=== PATIENT | female | born 1995 | race Caucasian/White ===

== ENCOUNTER 2019-03-08 04:30 | Observation (INO) | payer OTHER, SELFPAY ==
[2019-03-08] VITALS (13 sets, daily range): BP systolic 91–125; BP diastolic 42–88; PULSE 59–100; RESP 13–22; TEMP 36.3–37.4; O2SAT 97–100; BMI 28.0
--- NOTE | ~2019-03-08 | CT_ITS ---
EXAMINATION: CT abdomen pelvis w con DATE: 03/08/2019 05:57 INDICATION: Right lower abdominal pain. TECHNIQUE: Computed tomography (CT) of the abdomen and pelvis was performed with 100 mL Omnipaque 350 intravenous contrast. Automated exposure control and iterative reconstruction technique were employe d. The dose-length product was 307.83 mGy-cm. COMPARISON: CT abdomen and pelvis 09/29/2018 FINDINGS: The visualized portions of the lung bases demonstrate mild atelectasis on the right. No ple ural effusion. The heart size is normal. No pericardial effusion. The liver, gallbladder, spleen, gould creas, adrenal glands, and kidneys are normal. The appendix contains multiple appendicoliths and is d ilated to 12 mm, consistent with appendicitis. There are no pathologically enlarged lymph nodes. Ther e is trace pelvic ascites. The bones are unremarkable. IMPRESSION: 1. Acute appendicitis. Reviewed, dictated and finalized at location A. [facility] [employer] IMPRESSION: 1. Acute appendicitis.
--- NOTE | 2019-03-08 04:53 | ED.ABDPAIN ---
HPI - Abdominal Pain General Chief Complaint: Abdominal Pain Stated Complaint: left side pain Time Seen by Provider: 03/08/19 04:45 Source: patient Mode of arrival: ambulatory Limitations: no limitations History of Present Illness HPI narrative: 23 yo female who presents with c/o right lower abdominal pain starting 12 hours ago. She states she has had constant pain that has gradually worsened. She reports sweats , nausea, vomiting. She has cloudy urine but denies hematuria or dysuria. She denies her pain radiating to her back. She denies history of kidney stones or ovarian cyst. MD elicited complaint: abdominal pain Onset (ago): day(s) (1) Pain Consistency: constant Location: RLQ Severity: severe Radiation: none Exacerbating factors: nothing Relieving factors: nothing Associated symptoms: nausea and vomiting Related Data Hx Last Menstrual Period: 2 weeks ago Home Medications Medication Instructions Recorded Confirmed No Home Medications 03/08/19 03/08/19 Allergies Allergy/AdvReac Type Severity Reaction Status Date / Time acetaminophen Allergy Intermediate RASH Verified 03/08/19 04:49 hydrocodone Allergy Intermediate RASH Verified 03/08/19 04:49 strawberry Allergy Intermediate Unknown Verified 03/08/19 04:49 Review of Systems Review of Systems: Narrative: CONSTITUTIONAL: Denies fever,; reports sweats. EYES: Denies visual changes, redness, or discharge. ENT: Denies rhinorrhea, congestion, sore throat, or otalgia. CARDIOVASCULAR: Denies chest pain, palpitations, or edema. RESPIRATORY: Denies cough or dyspnea. GASTROINTESTINAL: reports abdominal pain, nausea, vomiting GENITOURINARY: Denies dysuria or hematuria. SKIN: Denies rash or itching. MUSCULOSKELETAL: Denies back pain, joint pain, or myalgia. NEUROLOGIC: Denies headache, numbness, or weakness. PSYCHIATRIC: Denies anxiety or depression. [facility] Surgical History Surgical History S/P section Social History Social History Gender identity (if verbalized by the patient): Female Exam Narrative: Exam Narrative: . HEAD: Normocephalic, atraumatic THROAT:Mucous membranes moist, Oropharynx normal without erythema, exudate, peritonsillar swelling or fluctuance NECK: Supple, without lymphadenopathy or mass RESPIRATORY: No respiratory distress, Airway patent, Respirations non-labored, Clear to auscultation without rales, rhonchi or wheeze HEART: Regular rate and rhythm. No murmur heard. Normal peripheral pulses. SKIN: Warm, dry, normal color without rash NEURO: Alert and oriented x3. CN 2-12 grossly intact. No focal deficits. PSYCH: Normal mood and affect. Const: General: alert Orientation/consciousness: oriented x3 Other: moderate distress due to pain GI: GI Palp: Yes soft, Yes tender (RLQ), No guarding, No rigid and No hernia Auscultation: normal bowel sounds Course Reevaluation(s) Reevaluation #1: Nursing staff reports patient states her pain and nausea are currently resolved. Awaiting CT abdomen pelvis Date: 03/08/19 Time: 05:36 Consultations Consultation #1: I Discussed with Dr. Petersen. HE will check on OR and call back Date: 03/08/19 Time: 06:28 Vital Signs Vital signs: Vital Signs Temperature 97.4 F L 03/08/19 04:35 Pulse Rate 88 03/08/19 04:35 Respiratory Rate 18 03/08/19 04:35 Blood Pressure 121/65 03/08/19 04:35 Pulse Oximetry 100 03/08/19 04:35 Temperature 97.6 F 03/08/19 04:40 Pulse Rate 83 03/08/19 05:35 Respiratory Rate 20 03/08/19 05:35 Blood Pressure 125/88 03/08/19 05:35 Pulse Oximetry 99 03/08/19 05:35 MDM - Abdominal Pain Lab Data Attestation: I reviewed the patient's lab results. Result diagrams: 03/08/19 04:57 03/08/19 04:57 Labs: Lab Results 03/08/19 03/08/19 03/08/19 Range/Units 04:57 04:57 04:57 WBC 27.3 H (4.5-10.0) K/mm3 RBC 4.12 L (4.2-5.4) M/mm3 Hgb
[2019-03-08] MEDS: KETOROLAC 30 MG/ML VIAL (*BKC) IV PUSH (04:59)
[2019-03-08] MEDS: ONDANSETRON INJ 4 MG/2 ML VIAL IV PUSH ×2 (04:59→11:19)
[2019-03-08] MEDS: LACTATED RINGERS 1,000 ML 999 ML IV CONT (04:59)
[2019-03-08 05:09] LABS: Basophils Absolute Auto 0.1 K/mm3 (0.0-0.1); Basophils Percent Auto 0.2 % (0.2-1.2); Hematocrit 39.7 % (37.0-47.0); Hemoglobin 13.7 g/dL (12.0-15.0); Immature Granulocyte Absolute 0.21 K/mm3 (0.00-0.031); Immature Granulocyte Percent A 0.8 % (0-0.5); Lymphocytes Absolute Auto 1.41 K/mm3 (0.9-3.2); Lymphocytes Percent Auto 5.2 % (18.3-44.2); Mean Corpuscular HGB Conc 34.5 g/dl (32-36); Mean Corpuscular Hemoglobin 33.3 pg (26-34); Mean Corpuscular Volume 96.4 fl (80-100); Mean Platelet Volume 9.6 fl (7.4-10.4); Monocytes Absolute Auto 1.2 K/mm3 (0.1-0.6); Monocytes Percent Auto 4.4 % (2.6-8.5); Neutrophils Absolute Auto 24.4 K/mm3 (1.3-6.7); Neutrophils Percent Auto 89.4 % (45.5-73.1); Platelet Count Result 335 k/mm3 (150-375); Red Blood Count 4.12 M/mm3 (4.2-5.4); Red Cell Distribution Width 12.7 % (11.5-14.5); White Blood Count 27.3 K/mm3 (4.5-10.0)
[2019-03-08 05:23] LABS: Alanine Aminotransferase 17 U/L (4-35); Albumin Level 4.3 g/dL (3.5-5.1); Alkaline Phosphatase 68 U/L (38-126); Aspartate Amino Transferase 25 U/L (14-36); Bilirubin,Total 0.6 mg/dL (0.2-1.3); Blood Urea Nitrogen 14 mg/dL (7-17); Calcium 9.3 mg/dL (8.4-10.2); Carbon Dioxide 23 mmol/L (22-30); Chloride 100 mmol/L (98-107); Estimated CRCL calculation 119 ml/min; Estimated Glomerular Filt Rate > 60; Glucose 133 mg/dL (65-105); Lipase 44 U/L (23-300); Potassium 3.7 mmol/L (3.4-5.0); Sodium 134 mmol/L (137-145)
[2019-03-08 05:24] LABS: Add Urine Microscopic? YES; Appearance Urine Clear (Clear); Bacteria Urine Trace /hpf; Bilirubin Urine Negative (Negative); Blood Urine 1+ (Negative); Color Urine Yellow (Yellow); Glucose Urine UA Negative (Negative); Ketones Urine Trace mg/dL (Negative); Leukocyte Esterase Ur Negative LEU/UL (Negative); Mucus Urine Heavy /lpf; Nitrate Urine Negative (Negative); Protein Urine 1+ mg/dL (Negative); Squamous Epithelial Cell Urine Many /hpf (Few); Urobilinogen Urine Negative mg/dL (<2.0); WBC Urine 0-3 /hpf
[2019-03-08 05:31] LABS: Specific Grav Ur 1.031 (1.001-1.035)
--- NOTE | 2019-03-08 07:37 | ADMGEN ---
This patient, Madhavi Cat, was admitted to Medical Room 258-. Patient/family oriented to hospital policies and general routines including ID bracelet, bed and alarms, visiting hours, pain management, procedures, bathroom and other care routines, personal items, smoking policy, room service/diet, and visiting hours. Valuables list has been completed. Information on how to activate the Rapid Response Team has been discussed. Patient/Family are encouraged to report perceived risks to care and to ask questions if they do not understand what they are told or what they should do.
[2019-03-08] MEDS: LACTATED RINGERS 1,000 ML 125 ML IV CONT (07:49)
--- NOTE | 2019-03-08 08:36 | WPDANESEPP ---
Anes - Eval Pre Procedure Procedure: Operation Date: 03/08/19 09:00 Proposed Procedures p Laparoscopic Appendectomy - Juan Petersen MD Date/Time: 03/08/19 08:36 Pre Op Diagnosis: acute appendicitis Patient Data Age: 23 Gender: F Height: 1.52 m Weight: 63.6 kg Last Vital Signs Temp 36.4 C 03/08/19 04:40 Pulse 76 03/08/19 07:00 Resp 18 03/08/19 07:00 BP 124/82 03/08/19 07:00 Pulse Ox 100 03/08/19 07:00 Allergies Allergy/AdvReac Type Severity Reaction Status Date / Time strawberry Allergy Intermediate Unknown Verified 03/08/19 08:14 acetaminophen [From Vicodin] AdvReac Rash Verified 03/08/19 08:14 hydrocodone [From Vicodin] AdvReac Rash Verified 03/08/19 08:14 Home Medications Medication Instructions Recorded Confirmed Type No Home Medications 03/08/19 03/08/19 History Laboratory Tests 03/08/19 03/08/19 03/08/19 04:57 04:57 04:57 WBC 27.3 K/mm3 H K/mm3 (4.5-10.0) RBC 4.12 M/mm3 L M/mm3 (4.2-5.4) Hgb 13.7 g/dL g/dL (12.0-15.0) Hct 39.7 % % (37.0-47.0) MCV 96.4 fl fl (80-100) MCH 33.3 pg pg (26-34) MCHC 34.5 g/dl g/dl (32-36) RDW 12.7 % % (11.5-14.5) Plt Count 335 k/mm3 k/mm3 (150-375) MPV 9.6 fl fl (7.4-10.4) Immature Gran % (Auto) 0.8 % H % (0-0.5) Neut % (Auto) 89.4 % H % (45.5-73.1) Lymph % (Auto) 5.2 % L % (18.3-44.2) Tyler % (Auto) 4.4 % % (2.6-8.5) Eos % (Auto) 0.0 % % (0-4.4) Baso % (Auto) 0.2 % % (0.2-1.2) Lymph # (Auto) 1.41 K/mm3 K/mm3 (0.9-3.2) Tyler # (Auto) 1.2 K/mm3 H K/mm3 (0.1-0.6) Eos # (Auto) 0.0 K/mm3 K/mm3 (0-0.3) Baso # (Auto) 0.1 K/mm3 K/mm3 (0.0-0.1) Abs Immat Gran (auto) 0.21 K/mm3 H K/mm3 (0.00-0.031) Absolute Neuts (auto) 24.4 K/mm3 H K/mm3 (1.3-6.7) Absolute Nucleated RBC 0.0 K/mm3 K/mm3 (0.0-0.012) Nucleated RBC % 0.0 % % (0.0-0.2) Sodium 134 mmol/L L mmol/L (137-145) Potassium 3.7 mmol/L mmol/L (3.4-5.0) Chloride 100 mmol/L mmol/L (98-107) Carbon Dioxide 23 mmol/L mmol/L (22-30) BUN 14 mg/dL mg/dL (7-17) Creatinine 0.50 mg/dL L mg/dL (0.7-1.0) Estim Creat Clear Calc 119 ml/min ml/min Estimated GFR > 60 (59 - ) Glucose 133 mg/dL H mg/dL (65-105) Calcium 9.3 mg/dL mg/dL (8.4-10.2) Total Bilirubin 0.6 mg/dL mg/dL (0.2-1.3) AST 25 U/L U/L (14-36) ALT 17 U/L U/L (4-35) Alkaline Phosphatase 68 U/L U/L (38-126) Total Protein 8.0 g/dL g/dL (6.3-8.2) Albumin 4.3 g/dL g/dL (3.5-5.1) Lipase 44 U/L U/L (23-300) Urine Color Yellow (Yellow) Urine Appearance Clear (Clear) Urine pH 6.0 (5.0-9.0) Ur Specific [place] 1.031 (1.001-1.035) Urine Protein 1+ mg/dL H mg/dL (Negative) Urine Glucose (UA) Negative mg/dL mg/dL (Negative) Urine Ketones Trace mg/dL mg/dL (Negative) Ur Blood (Man) 1+ H (Negative) Urine Nitrate Negative (Negative) Urine Bilirubin Negative (Negative) Urine Urobilinogen Negative mg/dL mg/dL (<2.0) Leukocyte Esterase Rfl Negative ALINA/UL ALINA/UL (Negative) Urine RBC 3-5 /hpf H /hpf (0-2) Urine WBC 0-3 /hpf /hpf Ur Squamous Epith Cells Many /hpf H /hpf (Few) Urine Bacteria Trace /hpf /hpf Urine Mucus Heavy /lpf H /lpf Patient hx anesthesia problems: none Family hx anesthesia problems: none [facility] Family History Family History Mother Guillain Del Real? syndrome Father Multiple sclerosis Social History Social
--- NOTE | 2019-03-08 09:28 | WPDANESEFPP ---
Anes - Eval Final PreProcedure Day of Procedure 03/08/19 09:28 Patient weight: overweight Heart: regular rate and rhythm Lungs: clear to auscultation and normal air movement Airway: Mallampati scale class II Neurological: alert and oriented Last oral intake: >/= 8 hours ASA classification: II Emergent: yes Anesthetic plan: proceed Anesthesia type and monitoring: general ETT Informed Consent: The patient's anesthetic plan and its attendant risks and benefits were discussed with the patient/family/POA. Questions were solicited and answers provided to the satisfaction of the patient/family/POA.
--- NOTE | 2019-03-08 09:29 | PM.IMHP ---
H&P: HPI History of Present Illness Chief complaint: acute appendicitis Narrative: Madhavi Cat is a 23 yo female who presents with c/o right lower abdominal pain starting 15 hours ago. She states she has had constant pain that has gradually worsened. She reports sweats , nausea, vomiting. She has cloudy urine but denies hematuria or dysuria. She has had 2 C sections in the past 3 in 5 years ago. She denies her pain radiating to her back. She denies history of kidney stones or ovarian cyst. Last menstrual period was [address] scan during workup in the emergency room reveals a dilated appendix with the tip measuring 9 mm. She also had a corpus luteum cyst in the right ovary. There was no signs of abscess. [place] [id number]. Because of this and because of appendicoliths noted on CT she has decided to proceed with appendectomy. See plan below. Review of Systems Constitutional: Constitutional: Reports as per HPI and Denies headache(s) Eyes: Eyes: Denies loss of vision and Denies eye pain ENT: Reports hearing normal, Denies change in voice, Denies dizziness and Denies headache(s) Cardiovascular: Cardiovascular: Denies chest pain and Denies dyspnea Respiratory: Respiratory: Denies dyspnea and Denies wheezing Gastrointestinal: Gastrointestinal: Reports abdominal pain, Reports nausea and Reports vomiting Genitourinary: Genitourinary: Reports other (2 previous C-sections a Pfannstiel incision) Musculoskeletal: Musculoskeletal: Denies back pain and Denies arthralgias Integumentary/Breasts: Skin/Breast: Reports system reviewed and no additional complaints, except as docu Neurologic: Reports Normal hearing present, Denies dizziness, Denies headache(s), Denies loss of vision and Denies memory loss Psychiatric: Psychiatric: Denies memory loss and Denies panic attacks Endocrine: Endocrine: Reports no additional endocrine complaints Hematologic/Lymphatic: Hematologic/Lymphatic: Reports no additional hematologic/lymphatic complaints Allergic/Immunologic: Allergic/Immunologic: Denies wheezing [facility] Family History Family History Mother Guillain Del Real? syndrome Father Multiple sclerosis Social History Social History Smoking packs per day: 0.25 Smoking cigarettes per day: 5.0 Years smoked: 10 Smoking pack-years: 2.50 Smoking status: Current every day smoker Tobacco type: cigarettes Second hand tobacco smoke exposure: Yes Alcohol intake: former Drinks per week: 1 Gender identity (if verbalized by the patient): Female Spiritual care concerns: No Agree to blood products: Yes Meds Home Medications and Allergies Home Medications Medication Instructions Recorded Confirmed Type No Home Medications 03/08/19 03/08/19 History hydrocodone-acetaminophen 1 tab PO Q4H PRN #7 tablet 03/08/19 Rx Allergies Allergy/AdvReac Type Severity Reaction Status Date / Time strawberry Allergy Intermediate Unknown Verified 03/08/19 08:14 acetaminophen [From Vicodin] AdvReac Rash Verified 03/08/19 08:14 hydrocodone [From Vicodin] AdvReac Rash Verified 03/08/19 08:14 Vital Signs Vital Signs - 24 hr 03/08/19 04:35 03/08/19 04:40 03/08/19 05:35 Temperature 36.3 C L 36.4 C Pulse Rate 88 86 83 Respiratory Rate 18 16 20 Blood Pressure 121/65 113/69 125/88 Pulse Oximetry 100 99 99 03/08/19 07:00 Temperature Pulse Rate 76 Respiratory Rate 18 Blood Pressure 124/82 Pulse Oximetry 100 Exam Const: General: cooperative, no acute distress, alert and awake Orientation/consciousness: oriented x3 HENMT: Mouth: Yes moist mucous membranes Neck: Neck: normal visual inspection Chest: Chest palpation & inspection: normal inspection of the chest Resp: Effort & Inspection: normal respiratory effort Auscultation: clear to auscultation bilaterally Cardio: Jugular venous distension: no JVD Rate: regular rate Rhythm:
--- NOTE | 2019-03-08 09:40 | PC.NURSE ---
Patient to OR per stretcher.
[2019-03-08] MEDS: LACTATED RINGERS 1,000 ML 30 ML IV CONT ×2 (10:00→10:56)
[2019-03-08] MEDS: BUPIVACAINE/EPINEPHRINE 0.5% 10 ML VIAL 30 ML INFILTRATE (10:07)
--- NOTE | 2019-03-08 11:25 | PM.PROC ---
Procedure Note - Detailed Date of procedure: 03/08/19 Pre-op diagnosis: acute appendicitis Post-op diagnosis: same Procedure performed: Laparoscopic Appendectomy Description of procedure: The patient was seen in her hospital Room. The risks, benefits, complications, treatment options, and expected outcomes were discussed with the patient and/or family. The possibilities of reaction to medication, pulmonary aspiration, perforation of viscus, bleeding, recurrent infection, finding a normal appendix, the need for additional procedures, failure to diagnose a condition, and creating a complication requiring transfusion or operation were discussed. There was concurrence with the proposed plan and informed consent was obtained. The site of surgery was properly noted/marked. The patient was taken to Operating Room, and a time out was preformed which identified this as the proper patient, and the procedure verified as laparoscopic appendectomy, possible open. The patient was placed in the supine position and general anesthesia was induced, along with placement of orogastric tube, SCD hose, and a Jackson catheter. The abdomen was prepped and draped in a sterile fashion. A 5 mm umbilical incision was made and the peritoneal cavity was accessed using the Veress needle technique. Once the abdomen was insufflated to 14 mmHg pressure a 5 mm XL trocar over the 0? 5 mm scope was carefully twisted into the abdomen via the umbilicus. The pneumoperitoneum was then established to steady pressure of 14 mm Hg. A 12 mm laparoscopic port was placed through a transverse suprapubic incision. An additional 5 mm cannula was then placed in the left upper quadrant of the abdomen under direct vision. A careful evaluation of the entire abdomen was carried out. The patient was placed in Trendelenburg and left lateral decubitus position. The small intestines were retracted in the cephalad and left lateral direction away from the pelvis and right lower quadrant. The patient was found to have an enlarged and inflamed appendix that was extending into the right pericolic gutter. There was no evidence of perforation. The appendix was carefully dissected. Once it was free a 45 mm ethicon endogastroentestinal stapler with a vascular load was placed across the mesoappendix. This was fired and hemostasis was checked along the staple line and appeared to be adequate. For this patient, this divided the entire mesoappendix and we were able to proceed immediately to stapling off the appendix at it's junction with the cecum. The appendix was then divided at its base using the same 45 mm stapler with a 3.5 mm bowel wall load. Minimal appendiceal stump was left in place. There was no evidence of bleeding, leakage, or complication after division of the appendix at its junction with the cecum.. The appendix was then placed in an endobag which had been brought through the 12 mm suprapubic port site. The appendix and the bag were then extracted through this larger port site in the suprapubic position. The suprapubic port site was closed using a #1 Polysorb suture passed with a Harrison-Puente cone and needle suture passer and another placed separately using a standard needle jacob externally through the supra-pubic incision at the level of the fascia. The trocar site skin wounds were closed using 4-0 undyed Monocryl and surgical glue. Instrument, sponge, and needle counts were correct at the conclusion of the case. Anesthesia: GETA Surgeon: Juan Petersen MD Social Director: CARMENZA Sutherland, OR 1st assist Estimated blood loss (mL): 5 Urine output (mL): 200 Drains: No Packing: No Pathology: yes (Appendix) Complications: No immediate complications Condition: stable Disposition: PACU Findings: Appendix was curled swollen and hyperemic. No signs of gangrenous change or perforation.
--- NOTE | 2019-03-08 12:13 | PC.NURSE ---
Return from OR per stretcher.
[2019-03-08] MEDS: LACTATED RINGERS 1,000 ML 100 ML IV CONT (13:13)
--- NOTE | 2019-03-08 18:20 | PM.PNGS ---
Progress Note: A&P Assessment and Plan (1) Acute appendicitis: Onset Date: ~03/08/19 Qualifiers: Acute appendicitis type: with localized peritonitis Appendicitis abscess presence: without abscess Appendicitis gangrene presence: unspecified whether gangrene present Appendicitis perforation presence: without perforation Qualified Code(s): K35.30 - Acute appendicitis with localized peritonitis, without perforation or gangrene Code(s): K35.80 - Unspecified acute appendicitis Status: Acute Assessment and Plan: Doing well status post laparoscopic appendectomy Home tonight after being on outpatient extended recovery status. (2) Smoker: Onset Date: Unknown Code(s): F17.200 - Nicotine dependence, unspecified, uncomplicated Status: Acute Assessment and Plan: Patient encouraged to stop smoking. Subjective Subjective Date/Time Seen: 03/08/19 18:20 Patient doing well following surgery. Tolerating a diet. Not much pain. Home going instructions given. May shower, may use ice over suprapubic incision for 24 hours Return to the office in 2 weeks for follow-up visit May return to light duty work after 1 week. Prescription for 7 hydrocodone/acetaminophen given and patient will send switched to ibuprofen when this runs out or if she does not need the narcotics anymore. Patient call the office if she begins running a fever as problems with the wound. Objective Data Vital Signs Vital Signs: Vital Signs - 24 hr 03/08/19 04:35 03/08/19 04:40 03/08/19 05:35 Temperature 36.3 C L 36.4 C Pulse Rate 88 86 83 Respiratory Rate 18 16 20 Blood Pressure 121/65 113/69 125/88 Pulse Oximetry 100 99 99 03/08/19 07:00 03/08/19 10:56 03/08/19 11:11 Temperature 36.7 C Pulse Rate 76 100 80 Respiratory Rate 18 21 H 20 Blood Pressure 124/82 95/49 L 91/42 L Pulse Oximetry 100 98 100 03/08/19 11:26 03/08/19 11:41 03/08/19 11:56 Temperature 37.2 C Pulse Rate 65 77 65 Respiratory Rate 19 22 H 13 Blood Pressure 103/47 L 100/57 L 103/67 Pulse Oximetry 99 99 98 03/08/19 12:19 03/08/19 12:34 03/08/19 13:04 Temperature 37.3 C 37.4 C 37.3 C Pulse Rate 59 L 70 68 Respiratory Rate 17 17 18 Blood Pressure 105/52 L 113/53 L 113/66 Pulse Oximetry 98 98 97 03/08/19 14:04 Temperature 37.0 C Pulse Rate 76 Respiratory Rate 18 Blood Pressure 97/58 L Pulse Oximetry 100 Intake/Output Intake/Output: Intake & Output 03/05/19 03/06/19 03/07/19 03/08/19 23:59 23:59 23:59 23:59 Intake Total 1830 Output Total 900 Balance 930 Meds/Results Medications: Active Medications Generic Name Dose Route Start Last Admin Trade Name Freq PRN Reason Stop Dose Admin Acetaminophen 500 mg 03/08/19 12:20 Tylenol Tablet PO Q6H PRN Mild Pain (1-3) or Fever Hydrocodone Bitart/Acetaminophen 1 tab 03/08/19 12:20 Bromide 5-325 Mg PO Q4H PRN Pain Rated 4-6 Hydrocodone Bitart/Acetaminophen 1 tab 03/08/19 12:20 Bromide 7.5-325 Mg PO Q4H PRN Pain Rated 7-10 Lactated Ringer's 1,000 mls @ 100 mls/hr 03/08/19 12:05 03/08/19 13:13 Lr - Lactated Ringers Iv IV CONT 03/08/19 22:02 100 mls/hr .Q10H ONE Administration Morphine Sulfate 2 mg 03/08/19 12:20 Morphine Sulfate Inj IV PUSH Q2H PRN Pain Rated 4-6 Morphine Sulfate 4 mg 03/08/19 12:20 Morphine Sulfate Inj IV PUSH Q2H PRN Pain Rated 7-10 Naloxone HCl 0.1 mg 03/08/19 12:20 Narcan IV PUSH Q2M PRN Opiate Reversal Ondansetron HCl 4 mg 03/08/19 06:51 Zofran Inj IV PUSH Q4H PRN Nausea Senna/Docusate Sodium 2 tab 03/08/19 21:00 Senokot S PO HS GUERA Radiology Results: ITS Impressions Abdomen/Pelvis CT 03/08/19 08:45 IMPRESSION: 1. Acute appendicitis. Labs Labs: Laboratory Results - last 24 hr 03/08/19 03/08/19 03/08/19 04:57 04:57 04:57 WBC 27.3 H RBC 4.12 L Hgb 13.7
== END 2019-03-08 19:02 | disposition home or self-care (01) ==
LOC: ANHED 06:29 → ANH2MED 10:59
PROVIDERS: Admitting Provider Surgery; Emergency Provider General Practice; Visit Provider Surgery
PROC: 0DTJ4ZZ Resection of Appendix, Percutaneous Endoscopic Approach (ICD-10-PCS; CPT 44970; principal; 2019-03-08 09:00)
DX: C7A.020 Malignant carcinoid tumor of the appendix (principal); K35.30 Acute appendicitis with localized peritonitis, without perforation or gangrene; N83.11 Corpus luteum cyst of right ovary; F17.210 Nicotine dependence, cigarettes, uncomplicated
CPT/HCPCS: 44970; 36415; 74177; 80053; 81001; 81025; 83690; 85025; 88304; 88313; 88342; 96361; 96374; 96375; 99285; G0378; G0379; J0330; J1100; J1885; J2405; J2704; J3010; J7120; Q9967

== ENCOUNTER 2020-06-18 15:22 | Emergency (ER) | payer OTHER, SELFPAY ==
[2020-06-18 15:33] VITALS: BP 119/64; PULSE 76; RESP 18; TEMP 37; O2SAT 98
[2020-06-18 15:46] LABS: Basophils Absolute Auto 0.1 K/mm3 (0.0-0.1); Basophils Percent Auto 0.5 % (0.2-1.2); Eosinophils Absolute Auto 0.3 K/mm3 (0-0.3); Eosinophils Percent Auto 2.2 % (0-4.4); Hematocrit 38.3 % (37.0-47.0); Hemoglobin 13.3 g/dL (12.0-15.0); Immature Granulocyte Absolute 0.04 K/mm3 (0.00-0.031); Immature Granulocyte Percent A 0.3 % (0-0.5); Lymphocytes Absolute Auto 2.73 K/mm3 (0.9-3.2); Lymphocytes Percent Auto 22.6 % (18.3-44.2); Mean Corpuscular HGB Conc 34.7 g/dl (32-36); Mean Corpuscular Hemoglobin 33.6 pg (26-34); Mean Corpuscular Volume 96.7 fl (80-100); Mean Platelet Volume 8.9 fl (7.4-10.4); Monocytes Absolute Auto 0.6 K/mm3 (0.1-0.6); Monocytes Percent Auto 5.1 % (2.6-8.5); Neutrophils Absolute Auto 8.4 K/mm3 (1.3-6.7); Neutrophils Percent Auto 69.3 % (45.5-73.1); Platelet Count Result 292 k/mm3 (150-375); Red Blood Count 3.96 M/mm3 (4.2-5.4); Red Cell Distribution Width 12.5 % (11.5-14.5); White Blood Count 12.1 K/mm3 (4.5-10.0)
[2020-06-18 15:55] LABS: Alanine Aminotransferase 12 U/L (4-35); Albumin Level 4.2 g/dL (3.5-5.1); Alkaline Phosphatase 47 U/L (38-126); Anion Gap 4 mmol/L (8-16); Aspartate Amino Transferase 26 U/L (14-36); Bilirubin,Total 0.2 mg/dL (0.2-1.3); Blood Urea Nitrogen 10 mg/dL (7-17); Calcium 8.6 mg/dL (8.4-10.2); Carbon Dioxide 28 mmol/L (22-30); Chloride 106 mmol/L (98-107); Estimated CRCL calculation 79 ml/min; Estimated Glomerular Filt Rate > 60; Glucose 84 mg/dL (65-105); Lipase 64 U/L (23-300); Potassium 3.8 mmol/L (3.4-5.0); Sodium 138 mmol/L (137-145)
[2020-06-18 16:14] LABS: Add Urine Microscopic? YES; Appearance Urine Cloudy (Clear); Bacteria Urine Trace /hpf; Bilirubin Urine Negative (Negative); Blood Urine 1+ (Negative); Color Urine Yellow (Yellow); Glucose Urine UA Negative (Negative); Ketones Urine Negative (Negative); Leukocyte Esterase Ur Negative LEU/UL (Negative); Mucus Urine Rare /lpf; Nitrate Urine Negative (Negative); Protein Urine Negative (Negative); Squamous Epithelial Cell Urine Many /hpf (Few); Urobilinogen Urine Negative mg/dL (<2.0); WBC Urine 0-3 /hpf
[2020-06-18 18:49] VITALS: BP 102/54; PULSE 76; RESP 18; O2SAT 100
[2020-06-18 19:45] VITALS: BP 134/75; PULSE 98; RESP 19; O2SAT 100
--- NOTE | 2020-06-18 19:47 | ED.ABDPAIN ---
HPI - Abdominal Pain General Chief Complaint: Abdominal Pain Stated Complaint: stomach infection pain and vomiting Time Seen by Provider: 06/18/20 19:35 History of Present Illness HPI narrative: Patient is a 35-year-old female who presents ER with burning epigastric pain. Associated nausea vomiting had small flecks of blood within her emesis earlier this morning. Patient has been treated for H. pylori by her PCP and is currently on omeprazole 20 mg twice daily. She is trying to get in with a GI doctor for further evaluation. She also reports she is having some mild discomfort when she defecates. No constipation or diarrhea. No history of gastrointestinal hemorrhage. Related Data Allergies Allergy/AdvReac Type Severity Reaction Status Date / Time acetaminophen [From Vicodin] Allergy Hives Verified 06/18/20 19:44 hydrocodone [From Vicodin] Allergy Hives Verified 06/18/20 19:44 strawberries Allergy Dyspnea / Uncoded 06/18/20 19:44 SOB Review of Systems Review of Systems: All systems reviewed & are unremarkable except as noted in HPI and below Constitutional: Constitutional: Denies chills, Denies fever(s) and Denies weakness Gastrointestinal: Gastrointestinal: Reports abdominal pain, Denies constipation, Reports heartburn, Denies diarrhea, Reports nausea and Reports vomiting PMFSH Past Medical History Medical History (Updated 06/18/20 @ 20:39 by Suhail Kirby MD) Healthy female adult Surgical History Surgical History (Updated 06/18/20 @ 19:49 by Suhail Kirby MD) History of appendectomy History of section Social History Social History (Updated 06/18/20 @ 19:49 by Suhail Kirby MD) Smoking status: Current every day smoker Gender identity (if verbalized by the patient): Female Exam Narrative: Exam Narrative: GENERAL: Well-appearing, well-nourished, and in no acute distress. HEAD: Normocephalic, atraumatic. ENT: Mucous membranes moist. Normal-appearing posterior oropharynx. CHEST: Clear to auscultation. No respiratory distress. HEART: Regular rate and rhythm. Normal peripheral pulses. ABDOMEN: Soft, mild epigastric tenderness without guarding, nondistended, Hemoccult negative stool without gross blood or hemorrhoids on rectal exam. EXTREMITIES: Normal range of motion. No edema. NEURO: Alert and oriented x3. PSYCH: Normal mood and affect. Course Course Emergency Course: Patient feels much better GI cocktail. Discharge home with mylanta and increase PPI to 40 mg twice daily. Vital Signs Vital signs: Vital Signs Temperature 98.6 F 06/18/20 15:33 Pulse Rate 76 06/18/20 15:33 Respiratory Rate 18 06/18/20 15:33 Blood Pressure 119/64 06/18/20 15:33 Pulse Oximetry 98 06/18/20 15:33 Temperature 98.6 F 06/18/20 15:33 Pulse Rate 98 06/18/20 19:45 Respiratory Rate 19 06/18/20 19:45 Blood Pressure 134/75 06/18/20 19:45 Pulse Oximetry 100 06/18/20 19:45 MDM - Abdominal Pain Lab Data Result diagrams: 06/18/20 15:39 06/18/20 15:39 Labs: Lab Results 06/18/20 06/18/20 06/18/20 Range/Units 15:39 15:39 15:48 WBC 12.1 H (4.5-10.0) K/mm3 RBC 3.96 L (4.2-5.4) M/mm3 Hgb 13.3 (12.0-15.0) g/dL Hct 38.3 (37.0-47.0) % MCV 96.7 (80-100) fl MCH 33.6 (26-34) pg MCHC 34.7 (32-36) g/dl RDW 12.5 (11.5-14.5) % Plt Count 292 (150-375) k/mm3 MPV 8.9 (7.4-10.4) fl Immature Gran % (Auto) 0.3 (0-0.5) % Neut % (Auto) 69.3 (45.5-73.1) % Lymph % (Auto) 22.6 (18.3-44.2) % Rusk % (Auto) 5.1 (2.6-8.5) % Eos % (Auto) 2.2 (0-4.4) % Baso % (Auto) 0.5 (0.2-1.2) % Lymph # (Auto) 2.73 (0.9-3.2) K/mm3 Rusk # (Auto) 0.6 (0.1-0.6) K/mm3 Eos # (Auto) 0.3 (0-0.3) K/mm3 Baso # (Auto) 0.1 (0.0-0.1) K/mm3 Abs Immat Gran (auto) 0.04 H (0.00-0.031) K/mm3 Absolute Neuts (auto) 8.4 H (1.3-6.7) K/mm3 Absolute Nucleated RBC 0.0 (0.
[2020-06-18] MEDS: BELLADONNA ALK/PHENOB ELIX 10 ML, MAG HYDROX/ALUMINUM HYD/SIMETH 30 ML, LIDOCAINE HCL 2... PO (20:09)
[2020-06-18 21:10] VITALS: BP 122/74; PULSE 74; RESP 20; O2SAT 97
== END 2020-06-18 21:10 | disposition home or self-care (01) ==
PROVIDERS: Emergency Provider Emergency Medicine; PCP Physician Assistant
DX: K21.9 Gastro-esophageal reflux disease without esophagitis (principal)
CPT/HCPCS: 36415; 80053; 81001; 81025; 83690; 85025; 99283; A9270

== ENCOUNTER 2020-08-05 14:35 | Emergency (ER) | payer OTHER, SELFPAY ==
[2020-08-05] VITALS (10 sets, daily range): BP systolic 92–118; BP diastolic 44–73; PULSE 57–86; RESP 18; TEMP 36.5; O2SAT 85–100
[2020-08-05 15:29] LABS: Basophils Percent Auto 0.3 % (0.2-1.2); Eosinophils Absolute Auto 0.1 K/mm3 (0-0.3); Eosinophils Percent Auto 0.6 % (0-4.4); Hematocrit 38.5 % (37.0-47.0); Hemoglobin 13.1 g/dL (12.0-15.0); Immature Granulocyte Absolute 0.03 K/mm3 (0.00-0.031); Immature Granulocyte Percent A 0.3 % (0-0.5); Lymphocytes Absolute Auto 2.72 K/mm3 (0.9-3.2); Lymphocytes Percent Auto 27.9 % (18.3-44.2); Mean Corpuscular Hemoglobin 32.8 pg (26-34); Mean Corpuscular Volume 96.5 fl (80-100); Mean Platelet Volume 8.8 fl (7.4-10.4); Monocytes Absolute Auto 0.5 K/mm3 (0.1-0.6); Monocytes Percent Auto 5.4 % (2.6-8.5); Neutrophils Absolute Auto 6.4 K/mm3 (1.3-6.7); Neutrophils Percent Auto 65.5 % (45.5-73.1); Platelet Count Result 313 k/mm3 (150-375); Red Blood Count 3.99 M/mm3 (4.2-5.4); Red Cell Distribution Width 12.5 % (11.5-14.5); White Blood Count 9.8 K/mm3 (4.5-10.0)
[2020-08-05 15:41] LABS: Alanine Aminotransferase 12 U/L (4-35); Albumin Level 4.2 g/dL (3.5-5.1); Alkaline Phosphatase 44 U/L (38-126); Anion Gap 8 mmol/L (8-16); Aspartate Amino Transferase 25 U/L (14-36); Bilirubin,Total 0.4 mg/dL (0.2-1.3); Blood Urea Nitrogen 7 mg/dL (7-17); Calcium 8.9 mg/dL (8.4-10.2); Carbon Dioxide 24 mmol/L (22-30); Chloride 104 mmol/L (98-107); Estimated CRCL calculation 115 ml/min; Estimated Glomerular Filt Rate > 60; Glucose 106 mg/dL (65-105); Lipase 35 U/L (23-300); Potassium 3.8 mmol/L (3.4-5.0); Sodium 136 mmol/L (137-145)
[2020-08-05 15:51] LABS: Add Urine Microscopic? YES; Amorphous Sediment Urine Few; Appearance Urine Cloudy (Clear); Bacteria Urine Trace /hpf; Bilirubin Urine Negative (Negative); Blood Urine Negative (Negative); Color Urine Yellow (Yellow); Glucose Urine UA Negative (Negative); Ketones Urine Negative (Negative); Leukocyte Esterase Ur Negative LEU/UL (Negative); Mucus Urine Heavy /lpf; Nitrate Urine Negative (Negative); Protein Urine 2+ mg/dL (Negative); Specific Grav Ur 1.026 (1.001-1.035); Squamous Epithelial Cell Urine Many /hpf (Few)
--- NOTE | 2020-08-05 17:05 | ED.NAVMDI ---
HPI - Nausea/Vomiting/Diarrhea General Chief complaint: Nausea/Vomiting/Diarrhea Stated complaint: N/V IN , DIZZINESS Time Seen by Provider: 08/05/20 16:12 Source: patient Mode of arrival: ambulatory Limitations: no limitations History of Present Illness HPI Narrative: Patient is a 25-year-old female complaining of nausea vomiting x3 days. Patient describes the vomitus as nonbilious nonbloody. Patient states that she is , approximately 4 to 5 weeks. Patient states that she has had care and seen her CHEMISTRY PHYSICS TEACHER this past week. Patient denies any vaginal bleeding, vaginal discharge or abdominal pain. Patient states that her sister has hyperemesis gravidarum and the possibility that she has a too. Patient denies any abdominal pain, diarrhea, fever, chills or urinary symptoms. Related Data Allergies Allergy/AdvReac Type Severity Reaction Status Date / Time strawberry Allergy Severe Dyspnea / Verified 08/05/20 16:16 SOB acetaminophen [From Vicodin] Allergy Hives Verified 07/18/20 11:11 hydrocodone [From Vicodin] Allergy Hives Verified 07/18/20 11:11 Review of Systems Review of Systems: All systems reviewed & are unremarkable except as noted in HPI and below Constitutional: Constitutional: Denies body ache(s), Denies chills, Denies excessive sweating, Denies fatigue, Denies fever(s), Denies headache(s), Denies lethargy, Denies malaise, Denies weakness and Denies weight loss Eyes: Eyes: Denies blurry vision, Denies change in vision and Denies loss of vision ENT: Denies dizziness, Denies ear discharge, Denies headache(s), Denies lip swelling, Denies epistaxis, Denies nasal congestion, Denies neck pain, Denies throat swelling and Denies tongue swelling Cardiovascular: Cardiovascular: Denies chest pain, Denies chest pain at rest, Denies chest pain with activity, Denies diaphoresis, Denies rapid heart rate, Denies edema, Denies irregular heart rhythm, Denies lightheadedness, Denies palpitations, Denies dyspnea and Denies dyspnea on exertion Respiratory: Respiratory: Denies chest congestion, Denies cough, Denies hemoptysis, Denies dyspnea and Denies dyspnea on exertion Gastrointestinal: Gastrointestinal: Denies abdominal pain, Denies melena, Denies hematochezia, Denies diarrhea and Denies hematemesis Musculoskeletal: Musculoskeletal: Denies abnormal gait, Denies deformity, Denies joint swelling, Denies limited range of motion, Denies neck pain and Denies numbness Neurologic: Denies Abnormal speech present, Denies abnormal gait, Denies confusion, Denies dizziness, Denies headache(s), Denies focal weakness, Denies loss of vision, Denies numbness, Denies Other visual disturbances, Denies Sensory deficit (Neuro) and Denies weakness Psychiatric: Psychiatric: Denies confusion, Denies depression, Denies auditory hallucinations, Denies homicidal ideation and Denies suicidal ideation Endocrine: Endocrine: Denies cold intolerance, Denies excessive sweating, Denies fatigue, Denies heat intolerance and Denies palpitations Hematologic/Lymphatic: Hematologic/Lymphatic: Denies easy bleeding and Denies easy bruising Allergic/Immunologic: Allergic/Immunologic: Denies lip swelling, Denies throat swelling and Denies tongue swelling PMFSH Past Medical History Medical History Epigastric pain GERD (gastroesophageal reflux disease) Healthy female adult Marijuana smoker Nausea & vomiting Surgical History Surgical History History of appendectomy History of section S/P section Family History Family History Mother Guillain Del Real? syndrome Father Multiple sclerosis Social History Social History Smoking packs per day: 0.25 Smoking cigarettes per day: 5.0 Years smoked: 10 Smoking pack-year
[2020-08-05] MEDS: SODIUM CHLORIDE 0.9% IV 1,000 ML 999 ML IV CONT (17:38)
--- NOTE | 2020-08-13 15:03 | PC.NURSE ---
late entry-- infusion of NS completed at 1839
== END 2020-08-05 19:30 | disposition home or self-care (01) ==
PROVIDERS: Emergency Provider Emergency Medicine; PCP Physician Assistant
DX: O21.9 Vomiting of pregnancy, unspecified (principal); O99.611 Diseases of the digestive system complicating pregnancy, first trimester; K21.9 Gastro-esophageal reflux disease without esophagitis; O99.331 Smoking (tobacco) complicating pregnancy, first trimester; F17.210 Nicotine dependence, cigarettes, uncomplicated; Z3A.01 Less than 8 weeks gestation of pregnancy
CPT/HCPCS: 36415; 80053; 81001; 81025; 83690; 84702; 85025; 96360; 99283; J7030

== ENCOUNTER 2021-06-08 21:35 | Emergency (ER) | payer OTHER, SELFPAY ==
--- NOTE | ~2021-06-08 | CT_ITS ---
EXAMINATION: CT soft tissue neck w con DATE: 06/08/2021 23:06 INDICATION: Neck injury. Left ear and neck pain. Hoarseness. TECHNIQUE: Computed tomography (CT) of the neck was performed with 75 mL Omnipaque-350 intravenous co ntrast. Automated exposure control and iterative reconstruction technique were employed. The dose-jamari gth product was 476.08 mGy-cm. COMPARISON: None FINDINGS: The pharynx and larynx are normal. There are no pathologically enlarged lymph nodes. The or bits are normal. There is mild mucosal thickening in the paranasal sinuses. The mastoid air cells are normal. There is mild cervical spondylosis. IMPRESSION: 1. No etiology for the patient's symptoms. Reviewed, dictated and finalized at location A.
[2021-06-08 21:37] VITALS: BP 147/98; PULSE 95; RESP 18; TEMP 36.6; O2SAT 100
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
[2021-06-08 22:57] LABS: Estimated CRCL calculation 97 ml/min; Estimated Glomerular Filt Rate > 60
[2021-06-08 23:49] VITALS: BP 109/68; PULSE 61; RESP 16; O2SAT 100
== END 2021-06-08 23:49 | disposition home or self-care (01) ==
PROVIDERS: Emergency Provider Emergency Medicine; PCP Physician Assistant
DX: S09.22XA Traumatic rupture of left ear drum, initial encounter (principal); K21.9 Gastro-esophageal reflux disease without esophagitis; F17.210 Nicotine dependence, cigarettes, uncomplicated; Y04.2XXA Assault by strike against or bumped into by another person, initial encounter
CPT/HCPCS: 70491; 81025; 96365; 99284; J0131; Q9967

== ENCOUNTER 2022-08-25 11:00 | Outpatient (RCR) | payer OTHER, SELFPAY ==
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
--- NOTE | 2022-07-31 14:39 | PCPTNOTE ---
Patient called and cancelled due to child illness.
--- NOTE | 2022-08-06 15:47 | PCPTNOTE ---
Pt no showed her appt today, [facility] called and left message reminding pt of next appt on August 12 at 1pm.
--- NOTE | 2022-08-18 13:13 | PCPTNOTE ---
Patient called & cancelled scheduled appointment this date due to not feeling well.
--- NOTE | 2022-08-25 11:34 | PTOPDC ---
Assessment and note entered by Sara Shepherd, PT Evaluation Information Assessment Status Discharge Diagnosis neck pain, cervical radiculopathy Onset March 2020 Subjective Information Patient is 27 year old female referred to physical therapy due to cervical radiculopathy. Patient reports her chiropractor sent her for MRI which showed a pinched nerve, primary dr does not feel that surgery is needed and that physical therapy should be continued. Patient currently reports pain as 6/10 in left side of neck, reports difficulty turning head to the left. Neck pain is currently causing difficulty performing yardwork, taking shirt off, lifting heavy objects, exercising. Reported Pain Level Pain Score 0: Self Report Assessment PT Clinical Summary Patient reports she is pain free and has been able to return to chores and sleeping in her own bed. Patient is compliant with all exercises and denies need for further therapy at this time. Educated to continue with home exercises. Patient demonstrates cervical range of motion within normal limits in all planes and demonstrates improve strength of scapular musculature. Will DC patient at this time with home exercise program as all goals have been achieved. Plan of Care PT Services Indicated No
== END 2022-08-27 09:16 | disposition home or self-care (01) ==
LOC: ANHPT 11:00
PROVIDERS: PCP Physician Assistant; Visit Provider Physician Assistant
DX: M54.12 Radiculopathy, cervical region (principal)
CPT/HCPCS: 97110; 97140; 97162; 99199